=== PATIENT | male | born 1985 | race Asian ===

== ENCOUNTER 2020-05-12 14:42 | Emergency (ER) | payer MEDICAID ==
[~2020-05-12] VITALS: Ht 177.8 cm; Wt 72.7 kg
[2020-05-12] MEDS ORDERED: LORazepam 2 mg/ml vial IM ONE (14:45)
[2020-05-12] MEDS ORDERED: normal saline 1000ML IV soln IVB ONE (14:45)
[2020-05-12] MEDS ORDERED: haloperidol lactate 5mg/ml inj IM ONE (14:45)
--- NOTE | 2020-05-12 14:46 | NUR ---
unable to obtain vitals at this time due to patient's combative nature.
[2020-05-12 15:10] LABS: BASOPHILS # (AUTO) 0.1 X10'3 (0-0.2); BASOPHILS % (AUTO) 0.9 % (0-1); EOSINOPHILS # (AUTO) 0.1 X10'3 (0-0.9); HEMATOCRIT 45.8 % (42.0-52.0); HEMOGLOBIN 15.5 g/dl (14.0-17.9); LYMPHOCYTES # (AUTO) 4.2 X10'3 (1.1-4.8); MEAN CORPUSCULAR HEMOGLOBIN 31.9 PG (27.0-31.0); MEAN CORPUSCULAR HGB CONC 33.9 g/dL (33.0-36.5); MEAN PLATELET VOLUME 6.5 FL (7.4-10.4); MONOCYTES # (AUTO) 0.9 X10'3 (0-0.9); MONOCYTES % (AUTO) 10.4 % (2-12); NEUTROPHILS # (AUTO) 3.5 X10'3 (1.8-7.7); NEUTROPHILS % (AUTO) 39.7 % (42-75); PLATELET COUNT 406 X10'3 (140-440); RED BLOOD COUNT 4.87 X10'6 (4.70-6.10); RED CELL DISTRIBUTION WIDTH 14.3 % (11.5-14.5); WHITE BLOOD COUNT 8.8 X10'3 (4.5-11.0)
[2020-05-12 15:44] LABS: CREATINE KINASE 1697 U/L (39-308)
[2020-05-12 15:53] LABS: ALANINE AMINOTRANSFERASE 52 U/L (12-78); ALBUMIN 4.2 G/DL (3.4-5.0); ALBUMIN/GLOBULIN RATIO 1.1 (1.1-1.5); ALKALINE PHOSPHATASE 99 IU/L (46-116); ANION GAP 21 (8-16); ASPARTATE AMINO TRANSFERASE 71 U/L (10-37); BILIRUBIN,TOTAL 0.4 MG/DL (0.1-1.0); BLOOD UREA NITROGEN 15 MG/DL (7-18); BUN/CREATININE RATIO 10.5 (5.4-32.0); CALCIUM 9.2 MG/DL (8.5-10.1); CHLORIDE 102 MMOL/L (99-107); CREATININE 1.43 MG/DL (0.60-1.10); GLUCOSE 186 MG/DL (70-104); SODIUM 141 MMOL/L (135-145); TOTAL CARBON DIOXIDE 17.6 MMOL/L (24-32); TOTAL PROTEIN 8.1 G/DL (6.4-8.2); eGFR 57 ML/MIN
--- NOTE | 2020-05-12 16:12 | NUR ---
pt is resting quietly, 3 liters NS have infused, RMasha gave verbal order for 1 more liter NS w/o, police remain at bedside
[2020-05-12 16:16] VITALS: BP 133/91
--- NOTE | 2020-05-12 16:16 | NUR ---
Mika FOSTER at bedside to reevaluate pt
--- NOTE | 2020-05-12 16:18 | NUR ---
pt is alert, "when do the handcuffs come off?", resp even and unlabored
== END 2020-05-12 16:40 ==
LOC: ER 14:42
DX: S20.419A Abrasion of unspecified back wall of thorax, initial encounter (principal); M62.82 Rhabdomyolysis; F15.10 Other stimulant abuse, uncomplicated; R45.1 Restlessness and agitation; X58.XXXA Exposure to other specified factors, initial encounter; Y93.89 Activity, other specified; Y92.89 Other specified places as the place of occurrence of the external cause; Y99.8 Other external cause status
CPT/HCPCS: 36415; 71045; 80053; 82550; 82948; 85025; 93005; 96360; 96372; 99285; J1630; J2060; J7030

== ENCOUNTER 2020-07-09 09:07 | Inpatient (IN) | payer MEDICAID ==
[2020-07-08 19:30] VITALS: BP 113/66
[2020-07-09] VITALS (14 sets, daily range): BP systolic 109–131; BP diastolic 65–89
[~2020-07-09] VITALS: Ht 172.7 cm; Wt 68.2 kg
[2020-07-09 10:03] LABS: BASOPHILS % (AUTO) 0.3 % (0-1); EOSINOPHILS % (AUTO) 0 % (0-6); HEMATOCRIT 50.4 % (42.0-52.0); HEMOGLOBIN 17.4 g/dl (14.0-17.9); LYMPHOCYTES # (AUTO) 0.3 X10'3 (1.1-4.8); LYMPHOCYTES % (AUTO) 2.1 % (21-51); MEAN CORPUSCULAR HEMOGLOBIN 32.2 PG (27.0-31.0); MEAN CORPUSCULAR HGB CONC 34.4 g/dL (33.0-36.5); MEAN CORPUSCULAR VOLUME 93.5 FL (78-98); MEAN PLATELET VOLUME 6.4 FL (7.4-10.4); MONOCYTES # (AUTO) 1.4 X10'3 (0-0.9); MONOCYTES % (AUTO) 8.9 % (2-12); NEUTROPHILS % (AUTO) 88.7 % (42-75); PLATELET COUNT 375 X10'3 (140-440); RED BLOOD COUNT 5.39 X10'6 (4.70-6.10); RED CELL DISTRIBUTION WIDTH 13.2 % (11.5-14.5); WHITE BLOOD COUNT 15.8 X10'3 (4.5-11.0)
[2020-07-09] MEDS ORDERED: normal saline 1000ML IV soln IVB ONE (10:20)
[2020-07-09] MEDS ORDERED: ondansetron/PF 4mg/2ml inj IV ONE (10:20)
[2020-07-09 10:23] LABS: ALANINE AMINOTRANSFERASE 16 U/L (12-78); ALBUMIN 4.1 G/DL (3.4-5.0); ALKALINE PHOSPHATASE 95 IU/L (46-116); ANION GAP 7 (8-16); BILIRUBIN,TOTAL 0.6 MG/DL (0.1-1.0); BLOOD UREA NITROGEN 11 MG/DL (7-18); BUN/CREATININE RATIO 9.6 (5.4-32.0); CALCIUM 9.6 MG/DL (8.5-10.1); CHLORIDE 100 MMOL/L (99-107); CREATININE 1.15 MG/DL (0.60-1.10); GLUCOSE 197 MG/DL (70-104); LIPASE 77 U/L (73-393); SODIUM 140 MMOL/L (135-145); TOTAL CARBON DIOXIDE 33.2 MMOL/L (24-32); TOTAL PROTEIN 8.3 G/DL (6.4-8.2); eGFR 74 ML/MIN
[2020-07-09 10:32] LABS: POTASSIUM 4.2 MMOL/L (3.5-5.1)
[2020-07-09 10:40] LABS: ASPARTATE AMINO TRANSFERASE 22 U/L (10-37)
[2020-07-09] MEDS: morphine 4 MG/ML inj SYRINge IV PRN ×3 (10:41→14:02)
--- NOTE | 2020-07-09 10:46 | NUR ---
PT TO CT SCAN VIA JULIO WITH SETTER UP
[2020-07-09] MEDS ORDERED: piperacillin/tazo 4.5gm/100ml 100 ML IV SCH (11:05)
[2020-07-09] MEDS ORDERED: piperacillin/tazo 4.5gm/100ml 100 ML IV ONE (11:10)
[2020-07-09] MEDS ORDERED: NO HOME MEDS (12:19)
[2020-07-09] MEDS ORDERED: magnesium Cl slow-release 64mg tablet PO PRN (13:15)
[2020-07-09] MEDS ORDERED: morphine 2 MG/ML inj. syringe IV PRN ×3 (13:15→14:30)
[2020-07-09] MEDS ORDERED: potassium CL 10mEq/100ml bag 100 ML IV PRN ×2 (13:15)
[2020-07-09] MEDS ORDERED: magnesium 2GM in 50ml NS 50 ML IV PRN (13:15)
[2020-07-09] MEDS ORDERED: magnesium 4gm in 100ml NS 100 ML IV PRN (13:15)
[2020-07-09] MEDS ORDERED: ondansetron/PF 4mg/2ml inj IV PRN ×4 (13:15→17:35)
[2020-07-09] MEDS ORDERED: potassium Cl 20 mEq SR tablet PO PRN ×2 (13:15)
[2020-07-09] MEDS ORDERED: acetaminophen 325mg tablet PO PRN (13:15)
[2020-07-09 13:39] LABS: PARTIAL THROMBOPLASTIN TIME 24 SECONDS (22-32)
--- NOTE | 2020-07-09 13:47 | NUR ---
LACTIC ACID [address] CANCHOLA
[2020-07-09] MEDS ORDERED: morphine 4 MG/ML inj SYRINge IV PRN (14:30)
[2020-07-09] MEDS ORDERED: ringers solution, lacted 1,000 ML IV SCH (14:30)
[2020-07-09] MEDS ORDERED: proCHLORperazine 10 MG/2 ml inj IV PRN (14:30)
[2020-07-09] MEDS ORDERED: meperidine/PF 25mg/ml syringe IV PRN ×3 (14:30)
[2020-07-09 15:14] LABS: CLARITY,URINE SLIGHTLY CLOUDY (Clear); COLOR,URINE YELLOW (Yellow); GLUCOSE, URINE NEGATIVE (Neg); KETONES,URINE NEGATIVE (Neg); LEUKOCYTE ESTERASE ,URINE NEGATIVE (Neg); NITRITES, URINE NEGATIVE (Neg); OCCULT BLOOD,URINE NEGATIVE (Neg); PH,URINE 8.5 (4.8-8.0); PROTEIN,URINE 30 mg/dl (Neg); UA COLLECTION TYPE CLN CATCH MIDSTREAM
[2020-07-09] MEDS ORDERED: fentaNYL /PF 50mcg/ml 5ml ampule ONE (15:14)
[2020-07-09] MEDS ORDERED: midazolam 2 mg/2 ml injection ONE (15:14)
[2020-07-09] MEDS ORDERED: propofol inj 20 ML IV ONE (15:18)
[2020-07-09 15:20] LABS: URINE AMPHETAMINE SCREEN NEGATIVE (Neg); URINE BARBITUATE SCREEN NEGATIVE (Neg); URINE BENZODIAZEPINES SCREEN NEGATIVE (Neg); URINE CANNABINOID SCREEN POSITIVE (Neg); URINE COCAINE SCREEN NEGATIVE (Neg); URINE METHADONE SCREEN NEGATIVE (Neg); URINE OPIATE SCREEN POSITIVE (Neg); URINE PHENCYCLIDINE SCREEN NEGATIVE (Neg)
[2020-07-09 15:22] LABS: MUCUS STRANDS MANY /LPF (Neg); SQUAMOUS EPITHELIAL CELL,UR MANY /LPF (FEW)
[2020-07-09 15:26] LABS: BACTERIA,URINE FEW /HPF (Neg); TRANSITIONAL EPI CELLS,URINE FEW /HPF
[2020-07-09 15:28] LABS: RBC,URINE 0-2 /HPF (0-2); TRICHOMONAS,URINE FEW /HPF (NEGATIVE)
[2020-07-09] MEDS ORDERED: sevoflurane 250ml liquid IH ONE (15:32)
[2020-07-09] MEDS ORDERED: neostigmine methylsulfate 1 MG/ML 10ml vial ONE (15:32)
[2020-07-09] MEDS ORDERED: rocuronium 10mg/ml inj IV ONE (15:32)
[2020-07-09] MEDS ORDERED: glycopyrrolate 0.2mg/ml inj ONE (15:32)
[2020-07-09] MEDS ORDERED: LIDOcaine 2% (20mg/ml) 5ml vial ONE (15:36)
[2020-07-09] MEDS ORDERED: LIDOcaine 1% 30ml preserv. free vial ONE (15:52)
[2020-07-09] MEDS ORDERED: BUPIVAcaine/PF 2.5 mg/ml (0.25%) 30ml vial ONE (15:52)
[2020-07-09] MEDS ORDERED: ceFAZolin 1000mg inj ONE ×2 (15:57)
--- NOTE | 2020-07-09 17:00 | NUR ---
Received from OR via BED , accompanied by Anesthesiologist DR ANDERSON and report given by Anesthesiolgist. PATIENT WAKING UP, DENIES PAIN, V/S WNL, NEUROVASCULAR CHECKS INTACT, 18G PIV RUE, SCD ON, BANDAIDS TO LAP SIGHTS OF ABDOMEN AND DONTAE DRAIN CDI.
--- NOTE | 2020-07-09 17:05 | NUR ---
NG TUBE TO LWS LEFT NARES
[2020-07-09] MEDS ORDERED: naloxone 0.4 mg/ml inj IV PRN (17:35)
[2020-07-09] MEDS ORDERED: CADD PCA waste documentation MC PRN (17:35)
[2020-07-09] MEDS ORDERED: pantoprazole 40 MG vial IV ONE ×2 (17:35→18:00)
--- NOTE | 2020-07-09 17:50 | NUR ---
PATIENT A&OX4, DENIES PAIN, V/S WNL, NEUROVASCULAR CHECKS INTACT, 18G PIV RUE, SCD ON, BANDAIDS TO LAP SIGHTS OF ABDOMEN AND DONTAE DRAIN CDI AND NG TO LEFT NARES TO LWS CONTINOUS. PATIENT TAKEN TO 316 WITH ALL BELONGINGS AND REPORT GIVEN TO RN WHO HAS TAKEN OVER PATIENT CARE.
[2020-07-09] MEDS: HYDROmorphone/NS 1 mg/ml CADD 50 ML IV SCH ×4 (19:00→23:00)
--- NOTE | 2020-07-09 19:04 | NUR ---
Problems reprioritized. Patient report given, questions answered & plan of care reviewed with CHAPINCITO Flores.
[2020-07-09] MEDS: normal saline 1000ml 1,000 ML IV SCH ×2 (19:36→21:15)
[2020-07-09] MEDS ORDERED: heparin, porcine 5000 units/ml vial SQ SCH (20:00)
[2020-07-09] MEDS: K and/or MAG REPLACEMENT MC SCH (20:00)
[2020-07-09] MEDS: piperacillin/tazo 3.375gm/50ml 50 ML IV SCH (20:04)
[2020-07-09] MEDS: heparin, porcine 5000 units/ml vial SQ SCH (20:06)
[2020-07-09] MEDS: pantoprazole 40MG/NS 100ML BAG 100 ML IV SCH (21:32)
[2020-07-10] MEDS: HYDROmorphone/NS 1 mg/ml CADD 50 ML IV SCH ×12 (01:00→23:00)
[2020-07-10] MEDS: piperacillin/tazo 3.375gm/50ml 50 ML IV SCH ×4 (01:16→23:55)
[2020-07-10] MEDS: pantoprazole 40MG/NS 100ML BAG 100 ML IV SCH ×5 (01:17→22:07)
[2020-07-10 02:00] VITALS: BP 93/48
[2020-07-10] MEDS: normal saline 1000ml 1,000 ML IV SCH ×3 (05:15→20:03)
--- NOTE | 2020-07-10 06:27 | NUR ---
Problems reprioritized. Patient report given, questions answered & plan of care reviewed with ANGIE BECKHAM.
[2020-07-10 06:57] LABS: BASOPHILS % (AUTO) 0.2 % (0-1); EOSINOPHILS % (AUTO) 0.1 % (0-6); HEMOGLOBIN 14.8 g/dl (14.0-17.9); LYMPHOCYTES # (AUTO) 1.3 X10'3 (1.1-4.8); LYMPHOCYTES % (AUTO) 10.1 % (21-51); MEAN CORPUSCULAR HEMOGLOBIN 31.6 PG (27.0-31.0); MEAN CORPUSCULAR HGB CONC 33.6 g/dL (33.0-36.5); MEAN CORPUSCULAR VOLUME 94.2 FL (78-98); MEAN PLATELET VOLUME 6.7 FL (7.4-10.4); MONOCYTES # (AUTO) 1.7 X10'3 (0-0.9); MONOCYTES % (AUTO) 12.4 % (2-12); NEUTROPHILS # (AUTO) 10.3 X10'3 (1.8-7.7); NEUTROPHILS % (AUTO) 77.2 % (42-75); PLATELET COUNT 262 X10'3 (140-440); RED BLOOD COUNT 4.68 X10'6 (4.70-6.10); RED CELL DISTRIBUTION WIDTH 13.6 % (11.5-14.5); WHITE BLOOD COUNT 13.3 X10'3 (4.5-11.0)
[2020-07-10 07:27] LABS: ALANINE AMINOTRANSFERASE 17 U/L (12-78); ALBUMIN 2.8 G/DL (3.4-5.0); ALBUMIN/GLOBULIN RATIO 0.8 (1.1-1.5); ALKALINE PHOSPHATASE 69 IU/L (46-116); ANION GAP 10 (8-16); ASPARTATE AMINO TRANSFERASE 16 U/L (10-37); BILIRUBIN,TOTAL 0.8 MG/DL (0.1-1.0); BLOOD UREA NITROGEN 13 MG/DL (7-18); BUN/CREATININE RATIO 13.1 (5.4-32.0); CALCIUM 8.5 MG/DL (8.5-10.1); CHLORIDE 104 MMOL/L (99-107); CREATININE 0.99 MG/DL (0.60-1.10); GLUCOSE 84 MG/DL (70-104); MAGNESIUM 1.8 MG/DL (1.5-2.4); POTASSIUM 3.9 MMOL/L (3.5-5.1); SODIUM 142 MMOL/L (135-145); TOTAL CARBON DIOXIDE 27.6 MMOL/L (24-32); TOTAL PROTEIN 6.3 G/DL (6.4-8.2); eGFR 88 ML/MIN
[2020-07-10] MEDS: K and/or MAG REPLACEMENT MC SCH ×2 (08:00→20:00)
[2020-07-10] MEDS: nicotine 14mg patch - 24hr TD SCH (08:38)
[2020-07-10] MEDS: heparin, porcine 5000 units/ml vial SQ SCH ×2 (08:39→22:08)
[2020-07-10 09:52] VITALS: BP 107/71
[2020-07-10] MEDS ORDERED: guaiFENesin/DM 10ml UD oral syrup PO PRN (11:55)
--- NOTE | 2020-07-10 14:25 | NUR ---
Patient in room MED 316. I have received report from CHAPINCITO Lyn and had the opportunity to ask questions and assume patient care.
--- NOTE | 2020-07-10 14:30 | NUR ---
Problems reprioritized. Patient report given, questions answered & plan of care reviewed with Ike BECKHAM.
[2020-07-10 15:00] VITALS: BP 113/67
--- NOTE | 2020-07-10 15:36 | NUR ---
RECEIVED REPORT FROM CHAPINCITO CHACON. AWAITING PATIENT ARRIVAL.
[2020-07-10 16:25] VITALS: BP 134/79
[2020-07-10 18:15] VITALS: BP 117/70
--- NOTE | 2020-07-10 18:21 | NUR ---
Problems reprioritized. Patient report given, questions answered & plan of care reviewed with CHAPINCITO WOMACK.
--- NOTE | 2020-07-10 18:21 | NUR ---
Patient in room [facility] 354. I have received report from CHAPINCITO Joyce and had the opportunity to ask questions and assume patient care.
[2020-07-10] MEDS: traZODone 50mg tablet PO PRN (22:07)
[2020-07-10] MEDS: lactobacillus rhamnosus 10,000 MMU CELLS/CAPSULE PO SCH (22:07)
[2020-07-11 00:15] VITALS: BP 112/67
[2020-07-11] MEDS: HYDROmorphone/NS 1 mg/ml CADD 50 ML IV SCH ×12 (01:00→23:00)
[2020-07-11] MEDS: pantoprazole 40MG/NS 100ML BAG 100 ML IV SCH ×2 (02:26→07:17)
[2020-07-11] MEDS: normal saline 1000ml 1,000 ML IV SCH ×2 (04:28→14:28)
[2020-07-11 06:02] LABS: BASOPHILS # (AUTO) 0.1 X10'3 (0-0.2); BASOPHILS % (AUTO) 0.6 % (0-1); EOSINOPHILS % (AUTO) 0.1 % (0-6); HEMATOCRIT 36.4 % (42.0-52.0); HEMOGLOBIN 12.3 g/dl (14.0-17.9); LYMPHOCYTES # (AUTO) 1.4 X10'3 (1.1-4.8); LYMPHOCYTES % (AUTO) 12.9 % (21-51); MEAN CORPUSCULAR HEMOGLOBIN 31.5 PG (27.0-31.0); MEAN CORPUSCULAR HGB CONC 33.7 g/dL (33.0-36.5); MEAN CORPUSCULAR VOLUME 93.5 FL (78-98); MONOCYTES # (AUTO) 1.4 X10'3 (0-0.9); MONOCYTES % (AUTO) 12.8 % (2-12); NEUTROPHILS # (AUTO) 7.9 X10'3 (1.8-7.7); NEUTROPHILS % (AUTO) 73.6 % (42-75); PLATELET COUNT 266 X10'3 (140-440); RED CELL DISTRIBUTION WIDTH 13.2 % (11.5-14.5); WHITE BLOOD COUNT 10.7 X10'3 (4.5-11.0)
--- NOTE | 2020-07-11 06:20 | NUR ---
Problems reprioritized. Patient report given, questions answered & plan of care reviewed with CHAPINCITO Joyce.
[2020-07-11 06:43] LABS: ALANINE AMINOTRANSFERASE 13 U/L (12-78); ALBUMIN 2.4 G/DL (3.4-5.0); ALBUMIN/GLOBULIN RATIO 0.7 (1.1-1.5); ALKALINE PHOSPHATASE 62 IU/L (46-116); ANION GAP 6 (8-16); ASPARTATE AMINO TRANSFERASE 12 U/L (10-37); BILIRUBIN,TOTAL 0.7 MG/DL (0.1-1.0); BLOOD UREA NITROGEN 8 MG/DL (7-18); BUN/CREATININE RATIO 9.8 (5.4-32.0); CALCIUM 8.1 MG/DL (8.5-10.1); CHLORIDE 105 MMOL/L (99-107); CREATININE 0.82 MG/DL (0.60-1.10); GLUCOSE 90 MG/DL (70-104); MAGNESIUM 1.6 MG/DL (1.5-2.4); POTASSIUM 3.6 MMOL/L (3.5-5.1); SODIUM 138 MMOL/L (135-145); TOTAL CARBON DIOXIDE 26.7 MMOL/L (24-32); TOTAL PROTEIN 5.8 G/DL (6.4-8.2); eGFR > 90 ML/MIN
[2020-07-11] MEDS: nicotine 14mg patch - 24hr TD SCH (07:16)
[2020-07-11] MEDS: lactobacillus rhamnosus 10,000 MMU CELLS/CAPSULE PO SCH ×2 (07:17→20:17)
[2020-07-11] MEDS: heparin, porcine 5000 units/ml vial SQ SCH ×2 (07:18→20:18)
[2020-07-11] MEDS: K and/or MAG REPLACEMENT MC SCH ×2 (07:21→20:00)
[2020-07-11] MEDS: piperacillin/tazo 3.375gm/50ml 50 ML IV SCH (07:21)
[2020-07-11 07:35] VITALS: BP 114/72
[2020-07-11 11:38] VITALS: BP 109/61
[2020-07-11] MEDS: amox tr/potassium clavulanate 875/125mg TAB PO SCH (18:12)
--- NOTE | 2020-07-11 18:15 | NUR ---
Patient in room [facility] 354. I have received report from TOO BECKHAM and had the opportunity to ask questions and assume patient care. Addendum: 07/11/20 at 1903 by Venita Lemus RN Amended: Links added.
--- NOTE | 2020-07-11 18:40 | NUR ---
Problems reprioritized. Patient report given, questions answered & plan of care reviewed with CHAPINCITO Nathan.
[2020-07-11 19:15] VITALS: BP 107/61
[2020-07-11] MEDS: pantoprazole 40mg Tablet.DR PO SCH (20:17)
--- NOTE | 2020-07-11 20:25 | NUR ---
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 CADD NUMBERS OFF PT HIGH PRESSURING HAD BENT AT WRIST HAD TO STOP IT TO STOP SHRILL TYPE ALARM AND IT UNFORTUNATELY WITH STARTING IT BACK UP IT RESET THE RESIDUAL VOLUME ON THE CADD ALL OTHER SETTINGS REMAIN THE SAME AND DOSAGE AMOUNT STILL THE SAAME OTHER THAN USING IT.
--- NOTE | 2020-07-11 22:30 | NUR ---
pt resting eyes closed head under covers no changes at this time.
--- NOTE | 2020-07-11 23:23 | NUR ---
pt resting without changes.
[2020-07-11] MEDS: traZODone 50mg tablet PO PRN (23:49)
--- NOTE | 2020-07-11 23:50 | NUR ---
PT REQUESTED A SLEEPER MEDICATED PER REQUEST FOR THIS.
[2020-07-12] VITALS: BP 113/67
[2020-07-12] MEDS: HYDROmorphone/NS 1 mg/ml CADD 50 ML IV SCH ×12 (01:00→23:00)
--- NOTE | 2020-07-12 02:18 | NUR ---
RESTING EYES CLOSED WITHOUT CHANGES.
--- NOTE | 2020-07-12 04:44 | NUR ---
pt resting eyes closed received laundry of blanket and pt clothes back from the mental health unit, bedding and clothes in bags put next to the bed for the pt.
[2020-07-12] MEDS: normal saline 1000ml 1,000 ML IV SCH ×2 (05:14→19:23)
--- NOTE | 2020-07-12 05:15 | NUR ---
AWOKE BRIEFLY WITH IV BAG BEING HUNG AND DILADID CADD CHECKS.
[2020-07-12 06:05] LABS: BASOPHILS % (AUTO) 0.3 % (0-1); EOSINOPHILS # (AUTO) 0.1 X10'3 (0-0.9); EOSINOPHILS % (AUTO) 1.8 % (0-6); HEMATOCRIT 36.8 % (42.0-52.0); HEMOGLOBIN 12.5 g/dl (14.0-17.9); LYMPHOCYTES % (AUTO) 11.6 % (21-51); MEAN CORPUSCULAR HEMOGLOBIN 31.6 PG (27.0-31.0); MEAN CORPUSCULAR VOLUME 92.9 FL (78-98); MONOCYTES # (AUTO) 1.1 X10'3 (0-0.9); NEUTROPHILS % (AUTO) 73.3 % (42-75); PLATELET COUNT 292 X10'3 (140-440); RED BLOOD COUNT 3.96 X10'6 (4.70-6.10); RED CELL DISTRIBUTION WIDTH 13.2 % (11.5-14.5); WHITE BLOOD COUNT 8.2 X10'3 (4.5-11.0)
--- NOTE | 2020-07-12 06:16 | NUR ---
Problems reprioritized. Patient report given, questions answered & plan of care reviewed with KURT BECKHAM. Addendum: 07/12/20 at 0616 by Venita Lemus RN Amended: Links added.
[2020-07-12 06:20] LABS: ALANINE AMINOTRANSFERASE 13 U/L (12-78); ALBUMIN 2.2 G/DL (3.4-5.0); ALBUMIN/GLOBULIN RATIO 0.6 (1.1-1.5); ALKALINE PHOSPHATASE 63 IU/L (46-116); ANION GAP 6 (8-16); ASPARTATE AMINO TRANSFERASE 10 U/L (10-37); BILIRUBIN,TOTAL 0.7 MG/DL (0.1-1.0); BLOOD UREA NITROGEN 5 MG/DL (7-18); BUN/CREATININE RATIO 7.5 (5.4-32.0); CALCIUM 8.4 MG/DL (8.5-10.1); CHLORIDE 104 MMOL/L (99-107); CREATININE 0.67 MG/DL (0.60-1.10); GLUCOSE 89 MG/DL (70-104); MAGNESIUM 1.6 MG/DL (1.5-2.4); POTASSIUM 3.7 MMOL/L (3.5-5.1); SODIUM 137 MMOL/L (135-145); TOTAL PROTEIN 5.9 G/DL (6.4-8.2); eGFR > 90 ML/MIN
[2020-07-12 07:00] VITALS: BP 118/67
[2020-07-12] MEDS: K and/or MAG REPLACEMENT MC SCH ×2 (08:00→19:34)
[2020-07-12] MEDS: amox tr/potassium clavulanate 875/125mg TAB PO SCH ×2 (09:44→17:41)
[2020-07-12] MEDS: lactobacillus rhamnosus 10,000 MMU CELLS/CAPSULE PO SCH ×2 (09:44→19:29)
[2020-07-12] MEDS: pantoprazole 40mg Tablet.DR PO SCH ×2 (09:44→19:29)
[2020-07-12] MEDS: heparin, porcine 5000 units/ml vial SQ SCH ×2 (09:45→19:33)
[2020-07-12] MEDS: nicotine 14mg patch - 24hr TD SCH (09:49)
[2020-07-12 11:00] VITALS: BP 103/67
--- NOTE | 2020-07-12 18:54 | NUR ---
Patient in room [facility]. I have received report from Nery BECKHAM and had the opportunity to ask questions and assume patient care.
[2020-07-12 19:00] VITALS: BP 122/78
[2020-07-12] MEDS: traZODone 50mg tablet PO PRN (22:27)
[2020-07-13] VITALS: BP 114/67
[2020-07-13] MEDS: HYDROmorphone/NS 1 mg/ml CADD 50 ML IV SCH ×7 (01:00→15:00)
[2020-07-13 05:34] LABS: BASOPHILS % (AUTO) 0.5 % (0-1); EOSINOPHILS # (AUTO) 0.2 X10'3 (0-0.9); EOSINOPHILS % (AUTO) 4.1 % (0-6); HEMATOCRIT 36.7 % (42.0-52.0); HEMOGLOBIN 12.3 g/dl (14.0-17.9); LYMPHOCYTES # (AUTO) 1.4 X10'3 (1.1-4.8); LYMPHOCYTES % (AUTO) 24.7 % (21-51); MEAN CORPUSCULAR HEMOGLOBIN 31.2 PG (27.0-31.0); MEAN CORPUSCULAR HGB CONC 33.5 g/dL (33.0-36.5); MEAN CORPUSCULAR VOLUME 93.2 FL (78-98); MEAN PLATELET VOLUME 6.8 FL (7.4-10.4); MONOCYTES # (AUTO) 1.2 X10'3 (0-0.9); MONOCYTES % (AUTO) 20.7 % (2-12); NEUTROPHILS # (AUTO) 2.8 X10'3 (1.8-7.7); PLATELET COUNT 315 X10'3 (140-440); RED BLOOD COUNT 3.94 X10'6 (4.70-6.10); WHITE BLOOD COUNT 5.6 X10'3 (4.5-11.0)
[2020-07-13 05:52] LABS: ALANINE AMINOTRANSFERASE 12 U/L (12-78); ALBUMIN 2.1 G/DL (3.4-5.0); ALBUMIN/GLOBULIN RATIO 0.6 (1.1-1.5); ALKALINE PHOSPHATASE 58 IU/L (46-116); ANION GAP 5 (8-16); ASPARTATE AMINO TRANSFERASE 11 U/L (10-37); BILIRUBIN,TOTAL 0.6 MG/DL (0.1-1.0); BLOOD UREA NITROGEN 5 MG/DL (7-18); BUN/CREATININE RATIO 7.9 (5.4-32.0); CALCIUM 8.4 MG/DL (8.5-10.1); CHLORIDE 104 MMOL/L (99-107); CREATININE 0.63 MG/DL (0.60-1.10); GLUCOSE 91 MG/DL (70-104); MAGNESIUM 1.7 MG/DL (1.5-2.4); POTASSIUM 3.6 MMOL/L (3.5-5.1); SODIUM 138 MMOL/L (135-145); TOTAL CARBON DIOXIDE 29.4 MMOL/L (24-32); TOTAL PROTEIN 5.8 G/DL (6.4-8.2); eGFR > 90 ML/MIN
[2020-07-13 06:28] LABS: PLATELET ESTIMATE NORMAL; TOTAL CELLS COUNTED 100
--- NOTE | 2020-07-13 06:28 | NUR ---
Patient in room [facility] 354. I have received report from Myra BECKHAM and had the opportunity to ask questions and assume patient care.
--- NOTE | 2020-07-13 06:51 | NUR ---
Problems reprioritized. Patient report given, questions answered & plan of care reviewed with Gracia BECKHAM.
[2020-07-13 06:55] VITALS: BP 112/62
[2020-07-13] MEDS: pantoprazole 40mg Tablet.DR PO SCH ×2 (07:52→19:35)
[2020-07-13] MEDS: amox tr/potassium clavulanate 875/125mg TAB PO SCH ×2 (07:52→17:25)
[2020-07-13] MEDS: lactobacillus rhamnosus 10,000 MMU CELLS/CAPSULE PO SCH ×2 (07:52→19:35)
[2020-07-13] MEDS: nicotine 14mg patch - 24hr TD SCH (07:53)
[2020-07-13] MEDS: heparin, porcine 5000 units/ml vial SQ SCH ×2 (07:53→19:38)
[2020-07-13] MEDS: normal saline 1000ml 1,000 ML IV SCH ×2 (07:54→21:16)
[2020-07-13] MEDS: K and/or MAG REPLACEMENT MC SCH ×2 (07:54→20:00)
--- NOTE | 2020-07-13 12:53 | NUR ---
PAGER ID: [phone] MESSAGE: Gerard Gar#[id number] - Pt wants to be [facility] to [facility]. He states you said it was OK. Would you like to advance him? Thank you. Gracia [phone]
--- NOTE | 2020-07-13 14:11 | NUR ---
PAGER ID: [phone] MESSAGE: Ally-Surg [id number] Re: Cong please call [facility] just rounded on patient.
--- NOTE | 2020-07-13 14:17 | NUR ---
PAGER ID: [phone] MESSAGE: Gerard Gar 354C- FYI-Dr Uribe came in to see pt. Cadd was DC'ed, [place] 10 added, SL. Also Pt [facility] to [facility]. Thank you. Gracia [phone]
--- NOTE | 2020-07-13 14:57 | NUR ---
DC cadd diluted for pt. Reading Residual 38.8, 88/96 given/attempts, given 17.30mg. Wasted 30mls witness by Ally BECKHAMcharge operator. Pharmacy , [facility] called and discussed the discrepancy. [facility] aware, Charge aware. Discrepancy noted.
[2020-07-13] MEDS: HYDROcodone/acetaminophen 10/325mg tab PO PRN (17:25)
--- NOTE | 2020-07-13 18:00 | NUR ---
Patient in room [facility] 354. I have received report from Gracia BECKHAM and had the opportunity to ask questions and assume patient care.
--- NOTE | 2020-07-13 18:05 | NUR ---
Problems reprioritized. Patient report given, questions answered & plan of care reviewed with Dyana BECKHAM.
[2020-07-13 20:00] VITALS: BP 111/72
[2020-07-13] MEDS: traZODone 50mg tablet PO PRN (21:14)
[2020-07-14] VITALS: BP 105/58
[2020-07-14] MEDS: HYDROcodone/acetaminophen 10/325mg tab PO PRN ×2 (01:45→07:50)
--- NOTE | 2020-07-14 06:15 | NUR ---
Received report from Dyana BECKHAM, [facility].
[2020-07-14 06:18] LABS: BASOPHILS % (AUTO) 0.8 % (0-1); EOSINOPHILS # (AUTO) 0.3 X10'3 (0-0.9); EOSINOPHILS % (AUTO) 4.2 % (0-6); HEMATOCRIT 38.3 % (42.0-52.0); HEMOGLOBIN 13.1 g/dl (14.0-17.9); LYMPHOCYTES # (AUTO) 1.3 X10'3 (1.1-4.8); LYMPHOCYTES % (AUTO) 21.9 % (21-51); MEAN CORPUSCULAR HEMOGLOBIN 32.1 PG (27.0-31.0); MEAN CORPUSCULAR HGB CONC 34.2 g/dL (33.0-36.5); MEAN CORPUSCULAR VOLUME 93.9 FL (78-98); MEAN PLATELET VOLUME 6.4 FL (7.4-10.4); MONOCYTES # (AUTO) 1.3 X10'3 (0-0.9); MONOCYTES % (AUTO) 22.2 % (2-12); NEUTROPHILS # (AUTO) 3.1 X10'3 (1.8-7.7); NEUTROPHILS % (AUTO) 50.9 % (42-75); PLATELET COUNT 374 X10'3 (140-440); RED BLOOD COUNT 4.08 X10'6 (4.70-6.10); RED CELL DISTRIBUTION WIDTH 13.2 % (11.5-14.5); WHITE BLOOD COUNT 6.1 X10'3 (4.5-11.0)
[2020-07-14 06:37] LABS: ALANINE AMINOTRANSFERASE 14 U/L (12-78); ALBUMIN 2.3 G/DL (3.4-5.0); ALBUMIN/GLOBULIN RATIO 0.5 (1.1-1.5); ALKALINE PHOSPHATASE 65 IU/L (46-116); ANION GAP 8 (8-16); ASPARTATE AMINO TRANSFERASE 7 U/L (10-37); BILIRUBIN,TOTAL 0.4 MG/DL (0.1-1.0); BLOOD UREA NITROGEN 7 MG/DL (7-18); BUN/CREATININE RATIO 10.6 (5.4-32.0); CHLORIDE 104 MMOL/L (99-107); CREATININE 0.66 MG/DL (0.60-1.10); GLUCOSE 93 MG/DL (70-104); MAGNESIUM 1.8 MG/DL (1.5-2.4); POTASSIUM 4.1 MMOL/L (3.5-5.1); SODIUM 140 MMOL/L (135-145); TOTAL CARBON DIOXIDE 27.9 MMOL/L (24-32); TOTAL PROTEIN 6.6 G/DL (6.4-8.2); eGFR > 90 ML/MIN
--- NOTE | 2020-07-14 06:40 | NUR ---
Problems reprioritized. Patient report given, questions answered & plan of care reviewed with Rowan BECKHAM.
[2020-07-14] MEDS: lactobacillus rhamnosus 10,000 MMU CELLS/CAPSULE PO SCH (07:42)
[2020-07-14] MEDS: pantoprazole 40mg Tablet.DR PO SCH ×2 (07:42→14:47)
[2020-07-14] MEDS: amox tr/potassium clavulanate 875/125mg TAB PO SCH (07:43)
[2020-07-14] MEDS: heparin, porcine 5000 units/ml vial SQ SCH (07:43)
[2020-07-14] MEDS: nicotine 14mg patch - 24hr TD SCH (07:44)
[2020-07-14] MEDS: K and/or MAG REPLACEMENT MC SCH (07:44)
[2020-07-14 08:00] VITALS: BP 92/52
[2020-07-14 08:03] LABS: LARGE PLATELETS FEW; PLATELET ESTIMATE NORMAL; TOTAL CELLS COUNTED 100
[2020-07-14] MEDS: normal saline 1000ml 1,000 ML IV SCH (10:36)
[2020-07-14 11:00] VITALS: BP 131/80
--- NOTE | 2020-07-14 11:51 | NUR ---
Called Dr. Cuenca re: d/c of DONTAE drain upon discharge today, made him aware that it has minimal yellow drainage and okay'd it coming out. project administrative assistant to call Dr. Chaudhary for discharge orders.
[2020-07-14] MEDS ORDERED: AMOX-422 PO (13:02)
[2020-07-14] MEDS ORDERED: HYDR-4383 PO (13:03)
--- NOTE | 2020-07-14 13:53 | NUR ---
Called Dr. Marcelo to clarify orders that the patient stated he was supposed to be ordered on discharge. Received orders for Protonix 40 mg x 1 now and to continue daily x 30 days. Will call in new meds.
[2020-07-14] MEDS ORDERED: PANT20TA18 PO (13:56)
--- NOTE | 2020-07-14 14:20 | NUR ---
Paged hospitalist, "Rowan [phone]- please call [facility] re: 354 C Gerard Gar's [employer] script. Did you submit a e-script?" Waiting home school liaison officer back.
--- NOTE | 2020-07-14 15:00 | NUR ---
Paged hosp, "Rowan [phone]- 2nd page re: 354C Gerard Gar and Moraima script. Patient discharging, please call soon" Received callback. He's writing a written script for Moraima.
--- NOTE | 2020-07-14 15:20 | NUR ---
Discussed discharge instructions with patient, Education provided, verbalized understanding. IV's x 3 removed, cathlon intact and tolerated well. Belongings sent with patient. Called in medications and sent norco script with patient. Eager to be discharged. Discharged to [facility]. [facility] will then go [facility].
[2020-07-15] MEDS ORDERED: pantoprazole 40mg Tablet.DR PO ONE (07:30)
== END 2020-07-14 15:29 | disposition home or self-care (01) | DRG 220 ==
LOC: ER 09:08 → UNDOADMIN 13:12 → ED HOLD 13:12 → MED 3N 18:05 → SUR 3N 07-10 16:19
PROVIDERS: ADMIT Internal Medicine; ATTEND Internal Medicine
PROC: 8E0W4CZ Robotic Assisted Procedure of Trunk Region, Percutaneous Endoscopic Approach (ICD-10-PCS; 2020-07-09)
PROC: 0DU647Z Supplement Stomach with Autologous Tissue Substitute, Percutaneous Endoscopic Approach (ICD-10-PCS; principal; 2020-07-09 15:32)
DX: K25.5 Chronic or unspecified gastric ulcer with perforation (principal); F15.10 Other stimulant abuse, uncomplicated; F17.200 Nicotine dependence, unspecified, uncomplicated; Z79.899 Other long term (current) drug therapy
CPT/HCPCS: 36415; 74176; 80053; 80305; 81001; 82948; 83605; 83690; 83735; 85007; 85025; 85610; 85730; 87040; 87081; 93005; 96374; 99285; A4215; A4618; C1758; C9113; G0378; J0690; J1170; J1644; J2001; J2250; J2270; J2405; J2543; J2704; J2710; J3010; J3490; J7030; J7120

== ENCOUNTER 2020-09-24 13:59 | Emergency (ER) | payer MEDICAID ==
[~2020-09-24] VITALS: Ht 172.7 cm; Wt 59.0 kg
[~2020-09-24 13:59] MED LIST: HYDR-4383 PO; PANT20TA18 PO
[2020-09-24 14:12] VITALS: BP 131/72
--- NOTE | 2020-09-24 14:15 | NUR ---
WHEN PT WAS PLACED INTO ROOM HE EXPRESSED TO THAT HE WANTS TO GET INTO REHAB AND THAT HES SAD BECAUSE HE WANTS TO STOP USING DRUGS, PT HAS NO ACTIVE PLAN TO HURT HIS SELF
== END 2020-09-24 14:29 | disposition home or self-care (01) ==
LOC: ER 14:00
DX: F19.10 Other psychoactive substance abuse, uncomplicated (principal); F32.9 Major depressive disorder, single episode, unspecified; Z79.899 Other long term (current) drug therapy
CPT/HCPCS: 99281

== ENCOUNTER 2020-10-05 13:49 | Emergency (ER) | payer MEDICAID ==
[~2020-10-05] VITALS: Ht 172.7 cm; Wt 68.2 kg
[2020-10-05 13:56] VITALS: BP 138/87
== END 2020-10-05 14:31 | disposition home or self-care (01) ==
LOC: ER 13:52
DX: F10.99 Alcohol use, unspecified with unspecified alcohol-induced disorder (principal); Z00.00 Encounter for general adult medical examination without abnormal findings; Z79.899 Other long term (current) drug therapy
CPT/HCPCS: 99281

== ENCOUNTER 2020-10-12 09:52 | Emergency (ER) | payer MEDICAID ==
[~2020-10-12] VITALS: Ht 167.6 cm; Wt 67.0 kg
[2020-10-12 09:55] VITALS: BP 131/76
== END 2020-10-12 10:24 | disposition home or self-care (01) ==
LOC: ER 09:53
DX: F15.10 Other stimulant abuse, uncomplicated (principal); F17.200 Nicotine dependence, unspecified, uncomplicated; F15.90 Other stimulant use, unspecified, uncomplicated; F10.10 Alcohol abuse, uncomplicated; Y90.9 Presence of alcohol in blood, level not specified
CPT/HCPCS: 99281

== ENCOUNTER 2020-12-06 03:43 | Emergency (ER) | payer MEDICAID ==
[~2020-12-06] VITALS: Ht 172.7 cm; Wt 70.5 kg
[2020-12-06 03:54] VITALS: BP 135/87
[2020-12-06] MEDS ORDERED: AMOX500C2 PO (04:21)
[2020-12-06] MEDS ORDERED: METH4TAB81 PO (04:21)
== END 2020-12-06 04:33 | disposition home or self-care (01) ==
LOC: ER 03:43
DX: K04.7 Periapical abscess without sinus (principal); K04.1 Necrosis of pulp; K00.7 Teething syndrome; F15.90 Other stimulant use, unspecified, uncomplicated; Z72.89 Other problems related to lifestyle; Z79.2 Long term (current) use of antibiotics; Z79.899 Other long term (current) drug therapy
CPT/HCPCS: 99283

== ENCOUNTER 2020-12-21 06:11 | Emergency (ER) | payer MEDICAID ==
[~2020-12-21] VITALS: Ht 172.7 cm; Wt 66.0 kg
[~2020-12-21 06:11] MED LIST changes: +AMOX500C2 PO; +METH4TAB81 PO
[2020-12-21 06:17] VITALS: BP 120/95
[2020-12-21] MEDS ORDERED: IBUP-1986 PO (07:54)
[2020-12-21] MEDS ORDERED: ibuprofen tablet 400 MG TABLET PO ONE (07:55)
== END 2020-12-21 08:59 | disposition home or self-care (01) ==
LOC: ER 06:12
DX: S90.822A Blister (nonthermal), left foot, initial encounter (principal); S90.821A Blister (nonthermal), right foot, initial encounter; F15.90 Other stimulant use, unspecified, uncomplicated; Z79.2 Long term (current) use of antibiotics; Z79.899 Other long term (current) drug therapy; X58.XXXA Exposure to other specified factors, initial encounter; Y93.89 Activity, other specified; Y92.89 Other specified places as the place of occurrence of the external cause; Y99.8 Other external cause status
CPT/HCPCS: 99282

== ENCOUNTER 2021-10-10 15:14 | Emergency (ER) | payer MEDICAID ==
[~2021-10-10] VITALS: Ht 172.7 cm; Wt 66.0 kg
[~2021-10-10 15:14] MED LIST changes: -AMOX500C2 PO; +IBUP-1986 PO
[2021-10-10 15:21] VITALS: BP 126/80
[2021-10-10] MEDS ORDERED: ketorolac trometh. 30mg/ml inj. IM ONE (15:55)
[2021-10-10] MEDS ORDERED: HYDROcodone/acetaminophen 5mg/325mg tablet PO ONE (16:50)
[2021-10-10] MEDS ORDERED: HYDR-3965 PO (16:54)
== END 2021-10-10 17:09 | disposition home or self-care (01) ==
LOC: ER 15:14
DX: S62.300A Unspecified fracture of second metacarpal bone, right hand, initial encounter for closed fracture (principal); F15.10 Other stimulant abuse, uncomplicated; Y04.8XXA Assault by other bodily force, initial encounter; Y93.89 Activity, other specified; Y92.89 Other specified places as the place of occurrence of the external cause; Y99.8 Other external cause status
CPT/HCPCS: 29125; 73130; 96372; 99283; J1885

== ENCOUNTER 2022-01-12 18:36 | Emergency (ER) | payer MEDICAID ==
[~2022-01-12] VITALS: Ht 172.7 cm; Wt 65.0 kg
[2022-01-12 19:28] VITALS: BP 114/90
--- NOTE | 2022-01-12 19:36 | NUR ---
contacted Ruben, , incident happened at 7-11, pt does not want to talk to the burner machine operator at this time
[2022-01-12 20:51] LABS: CLARITY,URINE SLIGHTLY CLOUDY (Clear); COLOR,URINE YELLOW (Yellow); GLUCOSE, URINE NEGATIVE (Neg); KETONES,URINE NEGATIVE (Neg); LEUKOCYTE ESTERASE ,URINE NEGATIVE (Neg); NITRITES, URINE NEGATIVE (Neg); OCCULT BLOOD,URINE NEGATIVE (Neg); PH,URINE 5.5 (4.8-8.0); PROTEIN,URINE 100 mg/dl (Neg); UROBILINOGEN,URINE 0.2 E.U/dL (0.2-1.0)
[2022-01-12 20:53] LABS: UA COLLECTION TYPE NON-SPECIFIED
[2022-01-12 20:57] LABS: URINE AMPHETAMINE SCREEN POSITIVE (Neg); URINE BARBITUATE SCREEN NEGATIVE (Neg); URINE BENZODIAZEPINES SCREEN NEGATIVE (Neg); URINE CANNABINOID SCREEN POSITIVE (Neg); URINE COCAINE SCREEN NEGATIVE (Neg); URINE METHADONE SCREEN NEGATIVE (Neg); URINE OPIATE SCREEN NEGATIVE (Neg); URINE PHENCYCLIDINE SCREEN NEGATIVE (Neg)
[2022-01-12 20:58] LABS: BASOPHILS % (AUTO) 0.4 % (0-1); EOSINOPHILS % (AUTO) 0.4 % (0-6); HEMATOCRIT 45.5 % (42.0-52.0); HEMOGLOBIN 15.4 g/dl (14.0-17.9); LYMPHOCYTES % (AUTO) 22.9 % (21-51); MEAN CORPUSCULAR HEMOGLOBIN 30.6 PG (27.0-31.0); MEAN CORPUSCULAR HGB CONC 33.8 g/dL (33.0-36.5); MEAN CORPUSCULAR VOLUME 90.6 FL (78-98); MEAN PLATELET VOLUME 6.2 FL (7.4-10.4); MONOCYTES # (AUTO) 1.4 X10'3 (0-0.9); MONOCYTES % (AUTO) 15.3 % (2-12); NEUTROPHILS # (AUTO) 5.4 X10'3 (1.8-7.7); PLATELET COUNT 355 X10'3 (140-440); RED BLOOD COUNT 5.02 X10'6 (4.70-6.10); RED CELL DISTRIBUTION WIDTH 13.8 % (11.5-14.5); WHITE BLOOD COUNT 8.9 X10'3 (4.5-11.0)
[2022-01-12 21:11] LABS: BACTERIA,URINE 1+ /HPF (Neg); MUCUS STRANDS FEW /LPF (Neg); SQUAMOUS EPITHELIAL CELL,UR MODERATE /LPF (FEW)
[2022-01-12 21:12] LABS: ALANINE AMINOTRANSFERASE 23 U/L (12-78); ALBUMIN 4.3 G/DL (3.4-5.0); ALKALINE PHOSPHATASE 148 IU/L (46-116); ANION GAP 9 (8-16); ASPARTATE AMINO TRANSFERASE 26 U/L (10-37); BILIRUBIN,TOTAL 0.8 MG/DL (0.1-1.0); BLOOD UREA NITROGEN 13 MG/DL (7-18); BUN/CREATININE RATIO 10.5 (5.4-32.0); CALCIUM 9.1 MG/DL (8.5-10.1); CHLORIDE 102 MMOL/L (99-107); CREATININE 1.24 MG/DL (0.60-1.10); GLUCOSE 104 MG/DL (70-104); POTASSIUM 3.6 MMOL/L (3.5-5.1); SODIUM 137 MMOL/L (135-145); TOTAL CARBON DIOXIDE 26.5 MMOL/L (24-32); TOTAL PROTEIN 8.4 G/DL (6.4-8.2); eGFR 67 ML/MIN
[2022-01-12] MEDS ORDERED: sulfamethoxazole/trimethoprim DS (800/160mg) tablet PO ONE (21:50)
[2022-01-12] MEDS ORDERED: TETanus/Pertussis (Acell)/Diphther VAC/PF (Tdap-Adult) 0.5ml syringe IMVAC ONE (21:50)
--- NOTE | 2022-01-12 22:42 | NUR ---
wound cleaned with 500ml sterile water and betidine triston. wound irr with 500ml sterile water. pt toleriated procedure well with no verbal complaints.
--- NOTE | 2022-01-12 23:28 | NUR ---
pt ran out of the er yelling "im done,im done". when intercepted pt ran out of back exit. security called . pt seen running down street yelling profanities at staff. informed
--- NOTE | 2022-01-22 12:48 | NUR ---
ATTEMPTED TO CONTACT PT REGARDING VISIT ON 01/12 FOR THE SECOND TIME THROUGH HIS FRIEND DIANDRA. NO ANSWER AT PHONE# PROVIDED, UNABLE TO LEAVE
--- NOTE | 2022-01-27 11:05 | NUR ---
3RD ATTEMPT TO CONTACT PT REGARDING VISIT ON 01/12, PT HAS NOT ACTIVE PHONE# AND IS HOMELESS WITHOUT AN ADDRESS TO SEND A LETTER TO.
== END 2022-01-12 23:05 | disposition left against medical advice (07) ==
LOC: ER 18:37
DX: S01.81XA Laceration without foreign body of other part of head, initial encounter (principal); F15.90 Other stimulant use, unspecified, uncomplicated; Z72.89 Other problems related to lifestyle; Z56.0 Unemployment, unspecified; Z59.00 Homelessness unspecified; Z79.899 Other long term (current) drug therapy; Z20.3 Contact with and (suspected) exposure to rabies; Y04.0XXA Assault by unarmed brawl or fight, initial encounter; Y93.89 Activity, other specified; Y92.89 Other specified places as the place of occurrence of the external cause; Y99.8 Other external cause status
CPT/HCPCS: 12051; 70450; 80053; 80305; 81001; 85025; 87077; 87088; 87186; 90471; 90715; 99284

== ENCOUNTER 2022-02-21 23:09 | Emergency (ER) | payer MEDICAID ==
[~2022-02-21] VITALS: Ht 167.6 cm; Wt 64.5 kg
[2022-02-21 23:18] VITALS: BP 147/81
== END 2022-02-22 00:39 | disposition left against medical advice (07) ==
LOC: ER 23:10
DX: H57.12 Ocular pain, left eye (principal); Z53.21 Procedure and treatment not carried out due to patient leaving prior to being seen by health care provider

== ENCOUNTER 2023-05-02 12:28 | Emergency (ER) | payer SELFPAY ==
[~2023-05-02] VITALS: Ht 172.7 cm; Wt 65.9 kg
[2023-05-02 12:37] VITALS: BP 123/84; PULSE 98; RESP 18; TEMP 98.4; O2SAT 98
== END 2023-05-02 13:42 | disposition left against medical advice (07) ==
LOC: ER 12:29
DX: F15.90 Other stimulant use, unspecified, uncomplicated (principal); Z53.21 Procedure and treatment not carried out due to patient leaving prior to being seen by health care provider
CPT/HCPCS: 99281